=== PATIENT | female | born 1935 | race Caucasian/White ===

== ENCOUNTER 2017-09-22 19:39 | Inpatient (IN) | payer MEDICARE, OTHER ==
[~2017-09-22] VITALS: Ht 165.1 cm; Wt 67.1 kg
--- NOTE | ~2017-09-22 | HP ---
PATIENT: SHAR GREEN MEDICAL RECORD: [id number] ACCOUNT: [id number] LOCATION:[address] : 36 ADMISSION DATE: 09/22/17 HISTORY AND PHYSICAL EXAMINATION HISTORY OF PRESENT ILLNESS: Ms. Green is an 82-year-old white female that started having flu symptoms over a week ago. She ended up going to the walk-in clinic on Tuesday where she was diagnosed with influenza and started on Tamiflu. She has failed to improve. She presents again to the walk-in clinic with cough and congestion, where she was found to be hypoxic, saturations are running in the high 80s on room air. Her chest x-ray really did show some atelectasis, but she clinically appears dry and is going to require hospitalization for fluids, oxygen therapy and treatment for suspected secondary infection. She was subsequently admitted to our service. PAST MEDICAL HISTORY: Significant for known history of a CVA. She also has a history of breast cancer and B12 deficiency. ALLERGIES: INCLUDE CEFUROXIME, DOXYCYCLINE, MOBIC, PENICILLIN, PREMARIN, SULFA. SHE HAS INTOLERANCE TO CIPRO DUE TO ABDOMINAL PAIN. FAMILY HISTORY: Significant for coronary artery disease and breast cancer. SOCIAL HISTORY: The patient is . She does not smoke or drink. REVIEW OF SYSTEMS: Significant for weakness, fatigue, shortness of breath, myalgias, cough, some nausea. PHYSICAL EXAMINATION: GENERAL: She is in no distress at this time. HEENT: Sclerae nonicteric. Mucous membranes are a little dry. HEART: Regular. LUNGS: Relatively clear at this time. ABDOMEN: Soft. EXTREMITIES: Lower extremities reveal no edema. Negative Homans. No clinical signs of DVT. IMPRESSION: 1. Influenza. 2. Hypoxia, suspect secondary lower respiratory tract infection, not yet evident due to dehydration, history of breast cancer. PLAN: Admit, IV fluids, updrafts. We will get cultures draw, start IV antibiotics for suspected secondary infection. Today will be day 5 of Tamiflu, we will finish that out. DVT prophylaxis. See orders for plan. TRANSINT:[id number] Voice Confirmation ID: [id number] DOCUMENT ID: [id number] HISTORY AND PHYSICAL [id number] SHAR GREEN EDMOND LAFLEUR DO at 4209 CC: [id number] DICTATION DATE: 09/23/17 1019 CLUTCH MECHANIC: 09/23/17 1136 ADM IN [facility] [address] [id number]
[~2017-09-22 19:39] MED LIST: ASCORBIC ACID500 MG PO; BAYER CHEWABLE81 MG PO
[2017-09-22] MEDS ORDERED: TAMOXIFEN CITRA20 MG PO (20:52)
[2017-09-22 21:20] VITALS: BP 125/61; BMI 24.0
[2017-09-22 21:42] LABS: BASOPHILS 0.2 % (0-2); EOSINOPHILS 0.1 % (0-7); HEMATOCRIT 37.1 % (36.0-48.0); IMMATURE GRANULOCYTES 0.2 % (0-5); MCH 28.9 pg (26.0-34.0); MCHC 32.3 g/dL (31.0-37.0); MCV 89.4 fL (80.0-100.0); MEAN PLATELET VOLUME 11.2 fL (7.4-10.4); MONOCYTES 5.6 % (2-11); NEUTROPHILS 79.9 % (40-80); RBC 4.15 10x6/uL (4.00-5.40); RDW 13.4 % (11.5-14.5); WBC 12.8 10x3/uL (4.8-10.8)
[2017-09-22 21:44] LABS: PLATELET COUNT 141 10x3/uL (130-400)
[2017-09-22 21:54] VITALS: BP 125/61
[2017-09-22 21:58] LABS: ALBUMIN 2.9 g/dL (3.4-5.0); ANION GAP 8.3 mmol/L (8-16); BILIRUBIN - TOTAL 0.41 mg/dL (0.2-1.3); CALCIUM 8.2 mg/dL (8.5-10.1); CARBON DIOXIDE 26.8 mmol/L (21.0-32.0); CREATININE - SERUM 1.1 mg/dL (0.6-1.3); POTASSIUM - SERUM 3.1 mmol/L (3.5-5.1); PROTEIN - SERUM 6.7 g/dL (6.4-8.2)
[2017-09-22 22:53] LABS: APPEARANCE CLEAR (CLEAR); BILIRUBIN NEGATIVE (NEGATIVE); COLOR YELLOW (YELLOW); GLUCOSE NEGATIVE (NEGATIVE); KETONE NEGATIVE (NEGATIVE); NITRITE NEGATIVE (NEGATIVE); PROTEIN NEGATIVE (NEGATIVE); SPECIFIC GRAVITY 1.015 (1.005-1.020); UROBILINOGEN NORMAL (NORMAL)
[2017-09-23 01:14] VITALS: BP 138/52
[2017-09-23 06:08] VITALS: BP 138/60
[2017-09-23 09:18] VITALS: BP 135/52
[2017-09-23 12:00] VITALS: BP 139/55
[2017-09-23 12:05] VITALS: Ht 165.1 cm; Wt 67.1 kg
[2017-09-23 18:10] VITALS: BP 138/53
[2017-09-23 19:00] VITALS: BP 138/52
[2017-09-24 04:56] LABS: BASOPHILS 0.2 % (0-2); EOSINOPHILS 0.1 % (0-7); HEMATOCRIT 31.5 % (36.0-48.0); HEMOGLOBIN 10.2 g/dL (12-16); IMMATURE GRANULOCYTES 0.4 % (0-5); LYMPHOCYTES 17.6 % (15-50); MCH 28.9 pg (26.0-34.0); MCHC 32.4 g/dL (31.0-37.0); MCV 89.2 fL (80.0-100.0); MEAN PLATELET VOLUME 11.3 fL (7.4-10.4); MONOCYTES 4.7 % (2-11); PLATELET COUNT 136 10x3/uL (130-400); RBC 3.53 10x6/uL (4.00-5.40); RDW 13.8 % (11.5-14.5); WBC 9.6 10x3/uL (4.8-10.8)
[2017-09-24 05:05] LABS: ANION GAP 13.3 mmol/L (8-16); CALCIUM 7.6 mg/dL (8.5-10.1); CARBON DIOXIDE 24.1 mmol/L (21.0-32.0); POTASSIUM - SERUM 3.4 mmol/L (3.5-5.1)
[2017-09-24 05:24] LABS: CREATININE - SERUM 0.8 mg/dL (0.6-1.3)
[2017-09-24 08:21] VITALS: BP 143/56
[2017-09-24 12:25] VITALS: BP 142/62
[2017-09-24 15:45] VITALS: BP 146/76
[2017-09-24 19:00] VITALS: BP 144/72
[2017-09-25] VITALS: BP 157/66
[2017-09-25 04:00] VITALS: BP 158/52
[2017-09-25 04:58] LABS: BASOPHILS 0.4 % (0-2); EOSINOPHILS 1.6 % (0-7); HEMATOCRIT 33.5 % (36.0-48.0); HEMOGLOBIN 10.8 g/dL (12-16); IMMATURE GRANULOCYTES 0.4 % (0-5); LYMPHOCYTES 32.5 % (15-50); MCH 28.7 pg (26.0-34.0); MCHC 32.2 g/dL (31.0-37.0); MCV 89.1 fL (80.0-100.0); MEAN PLATELET VOLUME 11.3 fL (7.4-10.4); MONOCYTES 9.2 % (2-11); NEUTROPHILS 55.9 % (40-80); RBC 3.76 10x6/uL (4.00-5.40); RDW 13.5 % (11.5-14.5)
[2017-09-25 04:59] LABS: PLATELET COUNT 169 10x3/uL (130-400); WBC 5.6 10x3/uL (4.8-10.8)
[2017-09-25 05:07] LABS: ANION GAP 12.1 mmol/L (8-16); CALCIUM 7.9 mg/dL (8.5-10.1); CARBON DIOXIDE 22.5 mmol/L (21.0-32.0); CREATININE - SERUM 0.9 mg/dL (0.6-1.3); POTASSIUM - SERUM 3.6 mmol/L (3.5-5.1)
[2017-09-25 09:15] VITALS: BP 162/84
[2017-09-25 11:48] VITALS: BP 150/71
[2017-09-25] MEDS ORDERED: VENTOLIN HFA18 GM INH (11:49)
[2017-09-25] MEDS ORDERED: BENZONATATE200 MG PO (11:49)
[2017-09-25] MEDS ORDERED: LEVAQUIN500 MG PO (11:49)
== END 2017-09-25 16:30 | disposition home or self-care (01) | DRG 153 ==
LOC: D.M2 19:39 → OBSVTIME 19:48 → D.M2 19:48
PROVIDERS: Family Medicine
DX: J11.1 Influenza due to unidentified influenza virus with other respiratory manifestations (principal); J98.11 Atelectasis; E86.0 Dehydration; Z86.73 Personal history of transient ischemic attack (TIA), and cerebral infarction without residual deficits; Z85.3 Personal history of malignant neoplasm of breast

== ENCOUNTER → 2019-05-01 08:03 | Outpatient (CLI) | payer MEDICARE, OTHER ==
[2017-09-23 12:05] VITALS: BMI 23.9
[~2019-05-01 08:03] MED LIST changes: +BENZONATATE200 MG PO; +LEVAQUIN500 MG PO; +TAMOXIFEN CITRA20 MG PO; +VENTOLIN HFA18 GM INH
== END | disposition home or self-care (01) ==
LOC: D.RAD 08:03
PROVIDERS: ATTEND Internal Medicine Gastroenterology
DX: R19.5 Other fecal abnormalities (principal); K57.90 Diverticulosis of intestine, part unspecified, without perforation or abscess without bleeding; Z86.010 Personal history of colon polyps